=== PATIENT | female | born 1990 | race Caucasian/White ===

== ENCOUNTER 2024-04-13 10:20 | Outpatient (CLI) | payer OTHER | END 2024-04-13 11:07 | disposition home or self-care (01) | LOC: NST 10:20 | PROVIDERS: ATTEND Obstetrics & Gynecology | DX: Z34.83 Encounter for supervision of other normal pregnancy, third trimester (principal) ==

== ENCOUNTER 2024-04-17 10:55 | Outpatient (CLI) | payer OTHER | END 2024-04-17 11:45 | disposition home or self-care (01) | LOC: NST 10:55 | PROVIDERS: ATTEND Obstetrics & Gynecology Gynecology | DX: Z34.83 Encounter for supervision of other normal pregnancy, third trimester (principal) ==

== ENCOUNTER 2024-04-20 09:34 | Outpatient (CLI) | payer OTHER | END 2024-04-20 10:19 | disposition home or self-care (01) | LOC: NST 09:34 | PROVIDERS: ATTEND Obstetrics & Gynecology Gynecology | DX: Z34.83 Encounter for supervision of other normal pregnancy, third trimester (principal) ==

== ENCOUNTER 2024-04-27 12:22 | Inpatient (IN) | payer OTHER ==
[~2024-04-27] VITALS: Ht 170.2 cm; Wt 122.0 kg
[2024-04-27 13:58] LABS: INR 0.97; PARTIAL THROMBOPLASTIN TIME 27.5 SECONDS (22.0-34.0); PROTHROMBIN TIME 10.6 SECONDS (9.0-11.5)
[2024-04-27 14:26] LABS: ALBUMIN 2.8 gm/dL (3.4-5.0); BILIRUBIN TOTAL 0.35 mg/dL (0.3-1.2); CALCIUM 8.9 mg/dL (8.5-10.1); CREATININE SERUM 0.55 mg/dL (0.55-1.02); GFR 126.52; GLOBULINA 4.1 G/DL (2.4-3.5); POTASSIUM 4.33 mEq/L (3.5-5.1); TOTAL PROTEIN 6.9 gm/dL (6.4-8.2)
[2024-05-02] MEDS ORDERED: PRENATAL + DHA1 EAC1 PO (06:31)
[2024-05-02 06:32] VITALS: BP 125/59
[2024-05-02] MEDS ORDERED: CITRIC ACID/SODIUM CITRATE 30 ML BLIST.PACK PO ONE (13:22)
[2024-05-02] MEDS ORDERED: CEFAZOLIN SODIUM 1,000 MG VIAL ONE (13:23)
[2024-05-02] MEDS ORDERED: OXYTOCIN 10 UNITS/ML VIAL ONE ×2 (13:33→18:26)
[2024-05-02] MEDS ORDERED: ERYTHROMYCIN BASE OPHT 1GM EACH TUBE OP ONE (13:33)
[2024-05-02] MEDS ORDERED: OXYTOCIN 1,000 ML IV SCH (15:15)
[2024-05-02] MEDS ORDERED: MORPHINE SULFATE 4 MG/ML CARTRIDGE IV PRN (15:15)
[2024-05-02] MEDS ORDERED: MORPHINE SULFATE 4 MG/ML VIAL IV ONE (16:25)
[2024-05-02 19:05] VITALS: BP 125/82
[2024-05-03] VITALS: BP 125/71
[2024-05-03 08:36] VITALS: BP 140/90
[2024-05-03] MEDS ORDERED: IBUprofen 400 MG TABLET PO SCH (09:00)
[2024-05-03 10:40] LABS: HEMATOCRIT 34.7 % (36.0-45.00); HEMOGLOBIN 11.6 g/dL (12.0-15.00); MEAN CELL VOLUME 89.7 fL (80.00-100.00); MEAN CORPUSCULAR HGB CONC 33.5 g/dl (32.0-36.0); PLATELET COUNT 201 K/uL (150-450); RED BLOOD COUNT 3.86 M/uL (4.00-6.00); RED CELL DISTRIBUTION WIDTH 13.5 % (11.5-14.5)
[2024-05-03 16:54] VITALS: BP 142/89
[2024-05-04 00:49] VITALS: BP 127/82
[2024-05-04] MEDS ORDERED: OxyCODONE HCL 5 MG TABLET (ROXICODONE) PO PRN (06:00)
[2024-05-04 08:00] VITALS: BP 126/87
[2024-05-04 15:14] VITALS: BP 126/86
[2024-05-05 00:20] VITALS: BP 118/88
[2024-05-05 10:17] VITALS: BP 125/85
== END 2024-05-05 12:30 | disposition home or self-care (01) | DRG 788 ==
LOC: O/R 05-02 05:40 → OB/GYN 05-02 07:00 → O/R 05-02 13:30 → OB/GYN 05-02 16:09
PROVIDERS: Obstetrics & Gynecology; ADMIT Obstetrics & Gynecology; ATTEND Obstetrics & Gynecology
PROC: 4A1HXCZ Monitoring of Products of Conception, Cardiac Rate, External Approach (ICD-10-PCS; 2024-05-02)
PROC: 10D00Z1 Extraction of Products of Conception, Low, Open Approach (ICD-10-PCS; principal; 2024-05-02 07:00)
DX: O32.1XX0 Maternal care for breech presentation, not applicable or unspecified (principal); Z3A.39 39 weeks gestation of pregnancy; Z37.0 Single live birth

== ENCOUNTER 2024-04-30 12:48 | Outpatient (CLI) | payer OTHER | END 2024-04-30 14:40 | disposition home or self-care (01) | LOC: NST 12:48 | PROVIDERS: ATTEND Obstetrics & Gynecology Gynecology | DX: Z34.83 Encounter for supervision of other normal pregnancy, third trimester (principal) ==